=== PATIENT | female | born 1950 | race Caucasian/White ===

== ENCOUNTER → 2020-08-30 15:35 | Outpatient (CLI) | payer BC, SELFPAY ==
--- NOTE | 2020-08-30 15:39 | DI.RAD.S_ITS ---
PROCEDURE: XR TOE RT MIN 2V INDICATIONS: swollen great toe TECHNIQUE: 3 views of the right toe(s) acquired. COMPARISON: None. FINDINGS: Bones: No fractures or dislocations. No suspicious bony lesions. 1st MTP degenerative change. Otherwise unremarkable great toe. No acute fracture dislocation. No findings suspicious for gout. Soft tissues: No suspicious soft tissue densities. IMPRESSION: No evidence acute bony abnormality of the great toe. No fractures or dislocations of the toes. Dictated by: Butch Andrade M.D. on 08/30/2020 at 15:18 Approved by: Butch Andrade M.D. on 08/30/2020 at 15:19
== END ==
PROVIDERS: Referring Provider Physician Assistant; Visit Provider Physician Assistant
DX: M79.89 Other specified soft tissue disorders (principal)
CPT/HCPCS: 73660